=== PATIENT | female | born 1970 | race Caucasian/White ===

== ENCOUNTER 2016-12-12 06:06 | Day surgery (SDC) | payer MEDICAID ==
[~2016-12-12] VITALS: Ht 160 cm; Wt 74.5 kg
[2016-12-12] VITALS (11 sets, daily range): BP systolic 91–129; BP diastolic 53–76; PULSE 74–92; RESP 12–21; Ht 160 cm; Wt 74.5 kg
[~2016-12-12 06:06] MED LIST: CEFAZOLIN 2 GM/50 ML (PMX) 50 ML IVPB SCH; SOD CHLORIDE 0.9% 1,000 ML IV SCH
[2016-12-12] MEDS ORDERED: CEFAZOLIN 1 GM INJ ONE (07:00)
[2016-12-12] MEDS ORDERED: ATORVASTATIN PO (07:10)
[2016-12-12] MEDS ORDERED: METF1000 PO (07:10)
[2016-12-12] MEDS ORDERED: PROPOFOL 60 ML ONE (07:47)
[2016-12-12] MEDS ORDERED: LIDOCAINE 2% (SDV) 5 ML INJ ONE (07:47)
[2016-12-12] MEDS ORDERED: FENTAnyl 50 MCG/ML VIAL ONE ×2 (07:53→08:37)
[2016-12-12] MEDS ORDERED: BUPIVACAINE 0.5%/EPI (SDV) 30 ML INJ ONE (07:54)
[2016-12-12] MEDS ORDERED: HYDROmorphONE (0.2 MG/ML) 10ML SYG IV PRN ×3 (08:30)
[2016-12-12] MEDS ORDERED: hydrALAzine 20 MG INJ IV PRN (08:30)
[2016-12-12] MEDS ORDERED: ONDANSETRON 4 MG INJ IV PRN (08:30)
[2016-12-12] MEDS ORDERED: LABETALOL HCL 20MG INJ IV PRN (08:30)
[2016-12-12] MEDS ORDERED: INSULIN ASPART [NOVOLOG] 3 ML PEN SC ONE (08:30)
[2016-12-12] MEDS ORDERED: MEPERIDINE 25 MG INJ IV PRN (08:30)
[2016-12-12] MEDS ORDERED: FENTAnyl 50 MCG/ML VIAL IV PRN ×3 (08:30)
[2016-12-12] MEDS ORDERED: EPHEDrine SULFATE 50 MG/5 ML SYG IV PRN (08:30)
--- NOTE | 2016-12-12 09:07 | OPR ---
DATE OF OPERATION: 12/12/2016 PREOPERATIVE DIAGNOSIS: Left breast mass. POSTOPERATIVE DIAGNOSIS: Left breast mass. OPERATION PERFORMED: Left partial mastectomy. ANESTHESIA: General. ANESTHESIOLOGIST: Lon Keita MD SURGEON: Stephen Byrnes MD GROCERY ASSOCIATE: Mary Jo Batista MD INDICATIONS FOR PROCEDURE: The patient is a 46-year-old female who noticed a palpable mass in her l eft breast. 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 The patient was counseled as to the benefit of excision. She consented and was scheduled for surgery. DESCRIPTION OF PROCEDURE: The patient was brought to the operating theater, placed under general an esthesia. The left breast was prepped and draped in usual sterile fashion. The mass, which was loc ated at approximately the 12 to 1 o'clock location adjacent to the nipple areolar border was identif ied and a periareolar incision was made directly over the mass. Subcutaneous tissue was dissected w ith cautery. The mass was palpated. Wide circumferential dissection of the mass took place, taking care to ensure adequate margin. The specimen was elevated, transected, and sent for permanent path ologic analysis. Residual bleeding was controlled with cautery. The wound was then irrigated. Whe n there was no further residual bleeding, the skin was reapproximated with 4-0 Vicryl suture in subc uticular fashion, and benzoin and Steri-Strips were applied. The patient tolerated procedure well. Estimated blood loss was 20 mL. There were no complications and the patient was transported in sta ble condition to the recovery room. Dictated By: STEPHEN BYRNES MD TL/HANK Conf#: [id number] DID#: [id number]
== END 2016-12-12 10:25 | disposition home or self-care (01) ==
LOC: SDS 06:06
PROVIDERS: ATTEND Surgery Surgical Oncology
DX: D24.2 Benign neoplasm of left breast (principal); N60.22 Fibroadenosis of left breast; N60.11 Diffuse cystic mastopathy of right breast; E78.5 Hyperlipidemia, unspecified
CPT/HCPCS: 19301; 82962; 88307; J0690; J1170; J2405; J3010; Z7512; Z7610